=== PATIENT | male | born 1995 | race Caucasian/White ===

== ENCOUNTER 2018-07-22 10:28 | Emergency (ER) | payer OTHER, MEDICAID ==
[~2018-07-22] VITALS: Ht 170.2 cm; Wt 63.5 kg
[~2018-07-22 10:28] MED LIST: CYCL10 PO; HYDACE5 PO; IBUP600 PO; METPHE27ER PO; Norco 5-325 Ta1 EACH PO
[2018-07-22] MEDS ORDERED: Percocet 5-3251 EACH PO (11:16)
== END 2018-07-22 11:28 | disposition home or self-care (01) ==
LOC: ER 10:28
DX: R07.89 Other chest pain (principal); Z88.2 Allergy status to sulfonamides
CPT/HCPCS: 71046; 96372; 99283-25; J1885